=== PATIENT | male | born 1970 | race Caucasian/White ===

== ENCOUNTER 2022-11-03 21:42 | Emergency (ER) | payer MEDICAID, OTHER ==
[~2022-11-03] VITALS: Ht 177.8 cm; Wt 104.3 kg
[2022-11-03] MEDS ORDERED: ONDANSETRON HCL 4 MG TABLET ONE (21:59)
[2022-11-03] MEDS ORDERED: HYDROMORPHONE 2 MG/1 ML DISP.SYRIN ONE (21:59)
[2022-11-03] MEDS ORDERED: HYDROMORPHONE 1 MG/1 ML DISP.SYRIN IM ONE (22:00)
[2022-11-03] MEDS ORDERED: ONDANSETRON HCL 4 MG TABLET PO ONE (22:00)
[2022-11-04] MEDS ORDERED: HYDROMORPHONE 1 MG/1 ML DISP.SYRIN IM ONE (01:00)
[2022-11-04 01:14] LABS: BASOPHILS # (AUTO) 0.1 K/UL (0.0-0.2); BASOPHILS % (AUTO) 0.3 % (0.0-2.0); HEMATOCRIT 32.6 % (36.7-47.1); HEMOGLOBIN 10.6 g/dL (12.5-16.3); LYMPHOCYTES # (AUTO) 1.3 K/uL (0.8-4.8); LYMPHOCYTES % (AUTO) 6.5 % (20.5-51.5); MEAN CORPUSCULAR HEMOGLOBIN 28.2 uug (23.8-33.4); MEAN CORPUSCULAR HGB CONC 33 g/dL (32.5-36.3); MEAN CORPUSCULAR VOLUME 86.9 fL (73.0-96.2); MONOCYTES # (AUTO) 0.6 K/uL (0.1-1.30); MONOCYTES % (AUTO) 3.2 % (0.0-11.0); NEUTROPHILS # (AUTO) 17.6 K/uL (1.8-8.9); PLATELET COUNT (AUTO) 283 K/uL (152-348); RED BLOOD CELL COUNT(AUTO) 3.76 MIL/uL (4.06-5.63); RED CELL DISTRIBUTION WIDTH 13.2 % (12.1-16.2); WHITE BLOOD COUNT (AUTO) 19.5 K/uL (3.6-10.2)
[2022-11-04] MEDS ORDERED: HYDROMORPHONE 1 MG/1 ML DISP.SYRIN ONE (01:15)
[2022-11-04 01:17] LABS: DIFFERENTIAL COMMENT 1
[2022-11-04 01:27] LABS: CALCIUM 8.6 mg/dL (8.5-10.1); CREATININE 1.4 mg/dL (0.6-1.3); POTASSIUM 4.4 mmol/L (3.5-5.1)
[2022-11-04] MEDS ORDERED: VANCOMYCIN IV 1,000 MG in IV DEXTROSE 5% 250 ML IV ONE (01:45)
[2022-11-04] MEDS ORDERED: PIPERACILLIN/TAZO 2.25 GM VIAL ONE (01:52)
[2022-11-04] MEDS ORDERED: PIPERACILLIN/TAZOBACTAM/D5W 50 ML ONE (01:53)
[2022-11-04] MEDS ORDERED: IV NS 1000 ML 1,000 ML IV ONE (02:00)
[2022-11-04] MEDS: PIPERACILLIN SODIUM/TAZOBACTAM 4.5 G in IV DEXTROSE 5% 50 ML IV SCH ×2 (03:08→07:04)
[2022-11-04] MEDS ORDERED: VANCOMYCIN IV 200 ML ONE (03:41)
[2022-11-04 06:35] VITALS: O2SAT 97
[2022-11-04] MEDS ORDERED: MORPHINE SULFATE 4 MG/1 ML DISP.SYRIN IV ONE (08:00)
[2022-11-04] MEDS ORDERED: MORPHINE SULFATE 4 MG/1 ML DISP.SYRIN ONE (08:31)
== END 2022-11-04 08:54 | disposition short-term general hospital (02) ==
LOC: ER 22:49
DX: S30.22XA Contusion of scrotum and testes, initial encounter (principal); D72.0 Genetic anomalies of leukocytes; E78.5 Hyperlipidemia, unspecified; X58.XXXA Exposure to other specified factors, initial encounter; Y93.89 Activity, other specified; Y92.89 Other specified places as the place of occurrence of the external cause; Y99.8 Other external cause status
CPT/HCPCS: 99285; 96365; 96366; 96361; 96375; 80048; 85025; 87040; 36415; 76870; 96372 ×2; J1170 ×2; J2543 ×2; J3370; J2270; J7040; A4663; Q0162